=== PATIENT | female | born 1950 | race Asian ===

== ENCOUNTER 2017-11-07 08:53 | Outpatient (CLI) | payer OTHER | END 2017-11-07 18:43 | disposition home or self-care (01) | LOC: SMA 08:53 | PROVIDERS: ATTEND Family Medicine | DX: Z12.31 Encounter for screening mammogram for malignant neoplasm of breast (principal) | CPT/HCPCS: 77067 ==

== ENCOUNTER 2019-08-05 10:49 | Outpatient (CLI) | payer OTHER | END 2019-08-05 20:29 | disposition home or self-care (01) | LOC: SMA 10:49 | PROVIDERS: ATTEND Family Medicine | DX: Z12.31 Encounter for screening mammogram for malignant neoplasm of breast (principal) | CPT/HCPCS: 77067 ==